=== PATIENT | female | born 2000 ===

== ENCOUNTER → 2019-02-10 | Outpatient (CLI) | payer OTHER ==
--- NOTE | 2019-02-10 15:12 | Diagnostic Imaging Report ---
INDICATION: anatomic assessment during normal . TECHNIQUE: Multiple real-time grayscale images were obtained over the gravid uterus. COMPARISON: None. FINDINGS: Single viable intrauterine , currently in breech presentation. Posterior-positioned placenta without evidence for previa. Normal amount volume of amniotic fluid, index 12.11 cm. The visualized anatomical structures including the kidneys, bladder, stomach, intracranial structures, as well as four-chamber heart appearing unremarkable. The extremities and spine as well as three-vessel cord and cord insertion site appearing unremarkable. Pelvic structures including gender determination unable to be assessed secondary to positioning. Gestational sac configuration is unremarkable. Biometrical measurements are as follows: Biparietal 4.60 cm, age 20 weeks 0 days. Head circumference 17.78 cm, age 20 weeks 2 days. Abdominal circumference 14.45 cm, age 19 weeks 6 days. Femur length 3.38 cm, age 20 weeks 5 days. Sonographic estimate age: 20 weeks 2 days. Sonographic estimated date of delivery: 06/28/2019. Estimated Weight: 336 gm (+/- 49 gm). LMP percentile: 31%. heart rate: 147 beats per minute. number: 1 of 1. IMPRESSION: 1. Single viable intrauterine , currently in breech presentation. Sonographic estimated age at 20 weeks 2 days for an estimated date of delivery of June 28, 2019. No abnormalities demonstrated at this time. Dictated by: Dictated on workstation # [id number]
== END ==
LOC: RAD 13:07
PROVIDERS: ATTEND Obstetrics & Gynecology
DX: Z34.92 Encounter for supervision of normal pregnancy, unspecified, second trimester (principal); Z3A.20 20 weeks gestation of pregnancy
CPT/HCPCS: 76805

== ENCOUNTER → 2019-04-21 | Outpatient (CLI) | payer OTHER ==
--- NOTE | 2019-04-21 15:26 | Diagnostic Imaging Report ---
INDICATION: Follow-up growth. TECHNIQUE: Multiple real-time grayscale images were obtained over the gravid uterus. COMPARISON: 02/10/2019. FINDINGS: The cervix measures 5 cm in length. The fetus is in cephalic presentation. Placenta is posteriorly located and there are no features of abruption or previa. The amount of amniotic fluid appears visually appropriate and the ALESIA is normal at 9.7 cm. Biometrical measurements are as follows: Biparietal 7.78 cm, age 31 weeks 2 days. Head circumference 28.18 cm, age 31 weeks 0 days. Abdominal circumference 23.78 cm, age 28 weeks 1 days. Femur length 5.48 cm, age 29 weeks 0 days. Sonographic estimate age: 29 weeks 6 days. Sonographic estimated date of delivery: 07/01/2019. Estimated Weight: 1293 gm (+/- 189 gm). LMP percentile: 6%. heart rate: 146 beats per minute. number: 1 of 1. IMPRESSION: 1. Single live intrauterine with an estimated gestational age of 29 weeks and 6 days by today's ultrasound. 2. Estimated weight is at the 6th percentile for gestational age. Dictated by: Dictated on workstation # [id number]
== END ==
LOC: RAD 10:05
PROVIDERS: ATTEND Obstetrics & Gynecology
DX: O26.843 Uterine size-date discrepancy, third trimester (principal); Z3A.29 29 weeks gestation of pregnancy
CPT/HCPCS: 76816

== ENCOUNTER 2019-05-09 13:00 | Outpatient (CLI) | payer SELFPAY ==
[~2019-05-09] VITALS: Ht 163 cm; Wt 66.5 kg
--- NOTE | 2019-05-09 13:10 | NUR ---
JAMIE RAMON presented to unit via ambulatory, accompanied by significant other, with c/o LOWER ABDOMINAL PAIN. JAMIE RAMON weighed, gowned, voided, and to bed. EFHM and TOCO applied, VS taken. JAMIE RAMON oriented to bed controls, call light, TV, heat, and A/C controls.
[2019-05-09 13:20] VITALS: BP 116/57
--- NOTE | 2019-05-09 13:30 | NUR ---
THIS RN AT BEDSIDE. PT CO INTERMITTENT LOWER ABDOMINAL & BACK PAIN FOR LAST 2 DAYS. PT SITTING QUIETLY, FLAT AFFECT, TEXTING ON PHONE, RATES PAIN 9/10. PT STATES SHES HAD ABOUT 5 CUPS OF WATER TO DRINK TODAY. WHEN ASKED, PT STATES THAT SHE HAS HAD BURNING WHILE SEE URINATES, INCREASED URGENCY AND FREQUENCY FOR THE LAST 2 DAYS. N/V SINCE 2 DAYS. TYLENOL DECREASES PAIN ONLY SLIGHTLY. DR PATEL ON UNIT AT 1400, THIS RN DISCUSSES PT REPORT WITH DR PATEL, PRENATALS REVIEWED. DR PATEL DOES NOT WANT SVE DONE, OCCASIONALLY UC, FHT STRIP REVIEWED BY DR PATEL. URINE DIPSTICK RESULTS READ TO DR PATEL. DR PATEL ORDERS CBC & CMP.
[2019-05-09 13:47] VITALS: BP 116/57
[2019-05-09 14:18] LABS: BASOPHILS % (AUTO) 0 % (0-10); EOSINOPHILS # (AUTO) 0.2 10^3/uL (0.0-0.3); EOSINOPHILS % (AUTO) 1 % (0-10); HEMATOCRIT 38 % (35-52); HEMOGLOBIN 12.7 G/DL (11.5-16.0); LYMPHOCYTES # (AUTO) 2.1 X 10^3 (1.0-4.0); LYMPHOCYTES % (AUTO) 16 % (12-44); MEAN CORPUSCULAR HEMOGLOBIN 32 PG (25-34); MEAN CORPUSCULAR HGB CONC 34 G/DL (32-36); MEAN CORPUSCULAR VOLUME 95 FL (80-99); MEAN PLATELET VOLUME 10.1 FL (7.4-10.4); MONOCYTES # (AUTO) 1.1 X 10^3 (0.0-1.0); MONOCYTES % (AUTO) 9 % (0-12); NEUTROPHILS # (AUTO) 9.3 X 10^3 (1.8-7.8); NEUTROPHILS % (AUTO) 74 % (42-75); PLATELET COUNT 171 10^3/uL (130-400); WHITE BLOOD COUNT 12.7 10^3/uL (4.3-11.0)
[2019-05-09 14:38] LABS: BAND NEUTROPHILS 3 %; BASOPHILS % (MANUAL) 0 %; EOSINOPHILS % (MANUAL) 0 %; LYMPHOCYTES % (MANUAL) 18 %; MONOCYTES % (MANUAL) 5 %; NEUTROPHILS % (MANUAL) 74 %; RBC MORPH NORMAL
[2019-05-09 14:39] LABS: ALANINE AMINOTRANSFERASE 23 U/L (0-55); ALBUMIN 3.5 GM/DL (3.2-4.5); ALKALINE PHOSPHATASE 158 U/L (40-136); BILIRUBIN,TOTAL 0.3 MG/DL (0.1-1.0); BUN/CREATININE RATIO 10; CALCIUM 9.3 MG/DL (8.5-10.1); CARBON DIOXIDE 20 MMOL/L (21-32); CHLORIDE 108 MMOL/L (98-107); CREATININE SERUM 0.59 MG/DL (0.60-1.30); GFR ESTIMATED > 60; GLUCOSE 89 MG/DL (70-105); POTASSIUM 3.7 MMOL/L (3.6-5.0); SODIUM 137 MMOL/L (135-145); TOTAL PROTEIN 7.1 GM/DL (6.4-8.2)
--- NOTE | 2019-05-09 14:45 | NUR ---
RN CALLED DR PATEL AT 1445, WITH LAB RESULTS, WNL. NO NEW ORDERS RECEIVED.
[2019-05-09] MEDS ORDERED: NITR-65 PO (15:31)
--- NOTE | 2019-05-09 15:42 | NUR ---
RN CALLED DR PATEL BACK AT THIS TIME. ORDER TO DISCHARGE PT TO HOME. RX FOR MACROBID CALLED INTO PT PREFERRED PHARMACY. DC INSTRUCTIONS GIVEN AND EXPLAINED TO PT AND SO. QUESTIONS ANSWERED.
--- NOTE | 2019-05-10 08:27 | Physician Query-Final Dx ---
Clinic Account Progress/Dx Physician Query: Please give diagnosis Please include # weeks gestation Date of Service May 09, 2019 at 13:00 KEEGAN PADILLA May 10, 2019 08:27
== END 2019-05-09 15:45 | disposition home or self-care (01) ==
LOC: WSo 13:00 → LDRP 13:00 → MERGE 13:00 → WSo 15:45
PROVIDERS: ATTEND Obstetrics & Gynecology
DX: O62.4 Hypertonic, incoordinate, and prolonged uterine contractions (principal)
CPT/HCPCS: 36415; 80053; 85007; 85027; 99214

== ENCOUNTER → 2019-06-05 | Outpatient (CLI) | payer OTHER ==
[~2019-06-05] MED LIST: NITR-65 PO
--- NOTE | 2019-06-05 13:06 | Diagnostic Imaging Report ---
INDICATION: Evaluate growth, position, and amniotic fluid volume. TECHNIQUE: Multiple Real-time grayscale images were obtained over the gravid uterus. COMPARISON: 04/21/2019. FINDINGS: There is a single live fetus in a cephalic presentation. The heart rate was recorded at 130 BPM. The placenta is to the left. The amniotic fluid index is lower limits at 7.9 cm. The cervical length is approximately 3.0 cm. Biometrical measurements are as follows: Biparietal 9.09 cm, age 37 weeks 2 days. Head circumference 32.81 cm, age 37 weeks 2 days. Abdominal circumference 29.66 cm, age 33 weeks 5 days. Femur length 6.71 cm, age 34 weeks 4 days. Sonographic estimate age: 35 weeks 5 days. Sonographic estimated date of delivery: 07/05/19. Estimated Weight: 2463 gm (+/- 360 gm). LMP percentile: 8%. heart rate: 130 beats per minute. number: 1 of 1. IMPRESSION: Single live IUP of approximately 35-36 weeks gestational age showing normal interval growth when compared with the exam from 04/21/2019. The amniotic fluid volume is lower limits of normal with an ALESIA of 7.9 cm. Dictated by: Dictated on workstation # [id number]
== END ==
LOC: RAD 10:39
PROVIDERS: ATTEND Obstetrics & Gynecology
DX: O26.843 Uterine size-date discrepancy, third trimester (principal); Z3A.35 35 weeks gestation of pregnancy
CPT/HCPCS: 76805; 76816

== ENCOUNTER 2019-06-14 13:50 | Inpatient (IN) | payer OTHER ==
[~2019-06-14] VITALS: Ht 161 cm; Wt 69.3 kg
[2019-06-14] VITALS (14 sets, daily range): BP systolic 105–126; BP diastolic 56–85
--- NOTE | 2019-06-14 13:50 | NUR ---
JAMIE SAL presented to unit via ambulatory from outpt registration, accompanied by , with c/o ruptured membranes in office. JAMIE SAL weighed, gowned, voided, and to bed. EFHM and TOCO applied, VS taken. JAMIE SAL oriented to bed controls, call light, TV, heat, and A/C controls.
[2019-06-14] MEDS ORDERED: TERBUTALINE INJ 1 MG/ML (BRETHINE) AMP SC PRN (14:15)
--- OUTSIDE RECORDS SUMMARY | 2019-06-14 14:25 | XMS REPORT | Continuity of Care Document ---
Author Organization Unknown Address Unknown Phone Unavailable Allergies Active Description Code Type Severity Reaction Onset Reported/Identified Relationship to Patient Clinical Status Yes No Known Drug Allergies [id number] Drug Allergy Unknown N/A 05/09/2019 Medications There is no data. Problems Date Dx Coded Attending Type Code Diagnosis Diagnosed By 02/14/2019 LLUVIA PATEL DO Ot Z34.9 2 ENCNTR FOR SUPRVSN OF NORMAL PREG, UNSP, 02/14/2019 JORGE DO LLUVIA C Ot Z3A.2 0 20 WEEKS GESTATION OF 02/16/2019 PATEL DO LLUVIA C Ot Z34.9 2 ENCNTR FOR SUPRVSN OF NORMAL PREG, UNSP, 02/16/2019 PATEL DO LLUVIA C Ot Z3A.2 0 20 WEEKS GESTATION OF 04/21/2019 JORGE BUCHANAN LLUVIA C Ot Z34.9 2 ENCNTR FOR SUPRVSN OF NORMAL PREG, UNSP, 04/21/2019 JORGE DO LLUVIA C Ot Z3A.2 0 20 WEEKS GESTATION OF 04/24/2019 JORGE DO LLUVIA C Ot O26.8 43 UTERINE SIZE-DATE DISCREPANCY, THIRD TRI 04/24/2019 PATEL DO LLUVIA C Ot Z3A.2 9 29 WEEKS GESTATION OF 06/06/2019 PATEL DO LLUVIA C Ot O26.8 43 UTERINE SIZE-DATE DISCREPANCY, THIRD TRI 06/06/2019 PATEL DO LLUVIA C Ot Z3A.3 5 35 WEEKS GESTATION OF Procedures There is no data. Results There is no data. Encounters ACCT No. Visit Date/Time Discharge Status Pt. Type Provider Facility Loc./Unit Complaint [id number] 06/05/2019 10:39:00 020 23:59:59 CLS Outpatient JORGE BUCHANAN LLUVIA C [facility] RAD FUNDAL HEIGHT LOW FOR D ATES IN THIRD TRIMESTER,34 [id number] 04/21/2019 10:05:00 020 23:59:59 CLS Outpatient LLUVIA PATEL DO [facility] RAD SIZE [id number] 02/10/2019 13:07:00 019 23:59:59 CLS Outpatient LLUVIA PATEL DO [facility] RAD FETUS PRESENT DURING MN EGNANCY IN 2ND TRI [id number] 05/10/2019 08:32:00 Document Registration
[2019-06-14] MEDS ORDERED: MISOPROSTOL 100 MCG (CYTOTEC) TAB ONE (14:50)
[2019-06-14] MEDS: D5 LR IV SOLUTION 1,000 ML IV SCH ×2 (15:57→22:10)
[2019-06-14 16:01] LABS: BASOPHILS % (AUTO) 0 % (0-10); EOSINOPHILS # (AUTO) 0.2 10^3/uL (0.0-0.3); EOSINOPHILS % (AUTO) 2 % (0-10); HEMATOCRIT 40 % (35-52); HEMOGLOBIN 13.5 G/DL (11.5-16.0); LYMPHOCYTES # (AUTO) 2.2 X 10^3 (1.0-4.0); LYMPHOCYTES % (AUTO) 20 % (12-44); MEAN CORPUSCULAR HEMOGLOBIN 31 PG (25-34); MEAN CORPUSCULAR HGB CONC 34 G/DL (32-36); MEAN CORPUSCULAR VOLUME 93 FL (80-99); MEAN PLATELET VOLUME 10.5 FL (7.4-10.4); MONOCYTES # (AUTO) 0.9 X 10^3 (0.0-1.0); MONOCYTES % (AUTO) 8 % (0-12); NEUTROPHILS # (AUTO) 7.7 X 10^3 (1.8-7.8); NEUTROPHILS % (AUTO) 70 % (42-75); PLATELET COUNT 174 10^3/uL (130-400); RED CELL DISTRIBUTION WIDTH 12.9 % (10.0-14.5); WHITE BLOOD COUNT 10.9 10^3/uL (4.3-11.0)
[2019-06-14] MEDS ORDERED: fentaNYL 2 mcg/ml BUPIVA 0.125 100 ML ONE (16:28)
[2019-06-14] MEDS: LACTATED RINGERS 1,000 ML IV SCH ×2 (16:42→20:05)
--- NOTE | 2019-06-14 16:45 | NUR ---
Dr Rutledge called to inquire - informed her that pt rated pain an 8 was wanting and epidural. LR bolus infusing. Plan to re-check pt after epidural and call physician with exam.
[2019-06-14] MEDS ORDERED: PREN1TAB19 PO (17:20)
--- NOTE | 2019-06-14 17:45 | NUR ---
Dr Rutledge notified of vag exam of one and pt now desires to wait for epidural. Physician will allow regular diet for dinner then clear liquids.
[2019-06-14] MEDS: MISOPROSTOL 100 MCG (CYTOTEC) TAB PO SCH ×2 (19:25→23:26)
--- NOTE | 2019-06-14 19:25 | NUR ---
To pt room. at bedside. Pt appears to be comfortable. Cytotec 50mcg given PO. Pt and have no needs at this time.
--- NOTE | 2019-06-14 19:37 | NUR ---
Report received on pt.
--- NOTE | 2019-06-14 19:56 | NUR ---
Richie called for epidural.
[2019-06-14] MEDS ORDERED: BUPIVACAINE 0.25% 30 ML (SENSORCAINE) VIAL ONE (20:26)
[2019-06-14] MEDS ORDERED: LIDOCAINE PF 2% 5 ML (XYLOCAINE) VIAL ONE (20:26)
[2019-06-14] MEDS ORDERED: fentaNYL INJECTION 100 MCG/2 ML AMP ONE (20:27)
[2019-06-14] MEDS ORDERED: LACTATED RINGERS 1,000 ML IV SCH (21:03)
[2019-06-14] MEDS ORDERED: NALOXONE 0.4 MG/ML 1 ML (NARCAN) VIAL IV PRN (21:15)
[2019-06-14] MEDS ORDERED: diphenhydrAMINE 50 MG/ML INJ (BENADRYL) IV PRN (21:15)
[2019-06-14] MEDS ORDERED: EPIDURAL (fentaNYL 2 MCG/ML BUPIVA 0.125%)100 ML BAG EPI PRN (21:15)
[2019-06-14] MEDS ORDERED: ONDANSETRON 4 MG/2 ML (SDV) Z0FRAN IV PRN (21:15)
[2019-06-14] MEDS ORDERED: CATHETER FLUSH 10 ML SYR IV SCH (22:00)
[2019-06-15] VITALS (30 sets, daily range): BP systolic 90–128; BP diastolic 51–79
--- NOTE | 2019-06-15 04:00 | NUR ---
Dr Rutledge notified of FHT and VE. Ordered to monitor pt and not give next dose of cytotec.
[2019-06-15] MEDS: D5 LR IV SOLUTION 1,000 ML IV SCH (05:30)
--- NOTE | 2019-06-15 05:48 | NUR ---
Dr Rutledge called and given update. Informed about FHT's variability and decels. Mother's HR 120's-140's. VE 3cm, no s/s of distress. Pt denies any chest pain, no racing heart, No pain, no anxiety. Orders received.
[2019-06-15 06:46] LABS: BASOPHILS % (AUTO) 0 % (0-10); EOSINOPHILS # (AUTO) 0.1 10^3/uL (0.0-0.3); EOSINOPHILS % (AUTO) 0 % (0-10); HEMATOCRIT 44 % (35-52); HEMOGLOBIN 14.7 G/DL (11.5-16.0); LYMPHOCYTES # (AUTO) 1.9 X 10^3 (1.0-4.0); LYMPHOCYTES % (AUTO) 10 % (12-44); MEAN CORPUSCULAR HEMOGLOBIN 32 PG (25-34); MEAN CORPUSCULAR HGB CONC 34 G/DL (32-36); MEAN CORPUSCULAR VOLUME 95 FL (80-99); MEAN PLATELET VOLUME 10.9 FL (7.4-10.4); MONOCYTES # (AUTO) 1.7 X 10^3 (0.0-1.0); MONOCYTES % (AUTO) 8 % (0-12); NEUTROPHILS # (AUTO) 16.2 X 10^3 (1.8-7.8); NEUTROPHILS % (AUTO) 82 % (42-75); PLATELET COUNT 138 10^3/uL (130-400); RED CELL DISTRIBUTION WIDTH 13.1 % (10.0-14.5); WHITE BLOOD COUNT 19.8 10^3/uL (4.3-11.0)
[2019-06-15 06:56] LABS: BAND NEUTROPHILS 2 %; BASOPHILS % (MANUAL) 0 %; EOSINOPHILS % (MANUAL) 0 %; LYMPHOCYTES % (MANUAL) 8 %; METAMYELOCYTES % 1 %; MONOCYTES % (MANUAL) 7 %; NEUTROPHILS % (MANUAL) 81 %; REACTIVE LYMPHOCYTES 1 %; TOXIC GRANULATION/VACUOLAZATIO 1+
[2019-06-15 07:08] LABS: ALANINE AMINOTRANSFERASE 20 U/L (0-55); ALBUMIN 3.7 GM/DL (3.2-4.5); ALKALINE PHOSPHATASE 247 U/L (40-136); BILIRUBIN,TOTAL 0.6 MG/DL (0.1-1.0); BUN/CREATININE RATIO 6; CALCIUM 9.9 MG/DL (8.5-10.1); CARBON DIOXIDE 18 MMOL/L (21-32); CHLORIDE 107 MMOL/L (98-107); CREATININE SERUM 0.65 MG/DL (0.60-1.30); GFR ESTIMATED > 60; GLUCOSE 82 MG/DL (70-105); SODIUM 138 MMOL/L (135-145); TOTAL PROTEIN 7.7 GM/DL (6.4-8.2)
[2019-06-15] MEDS ORDERED: ACETAMINOPHEN 650 MG SUPP (TYLENOL) PR NR (08:00)
--- NOTE | 2019-06-15 08:48 | Progress Note ---
Subjective Date Seen by a Provider: Jun 15, 2019 Time Seen by a Provider: 08:30 Objective Exam Vital Signs Date Time Temp Pulse Resp B/P (MAP) Pulse Ox O2 Delivery O2 Flow Rate FiO2 06/15/19 06:45 37.3 137 18 124/78 (93) 100 06/15/19 06:00 36.9 131 18 128/59 (82) 100 06/15/19 05:00 119 18 119/76 (90) 100 06/15/19 04:04 92 20 122/79 (93) 100 06/15/19 04:00 119 18 119/76 (90) 100 06/15/19 03:00 100 18 114/69 (84) 100 06/15/19 02:00 75 20 115/70 (85) 100 06/15/19 01:00 71 18 101/63 (76) 100 06/15/19 00:00 36.2 83 20 114/63 (80) 100 06/14/19 23:00 90 105/67 (80) 98.00 06/14/19 22:00 104 118/56 (76) 06/14/19 21:00 36.6 90 119/70 (86) 06/14/19 20:00 96 126/80 (95) 06/14/19 18:40 103 125/61 (82) Room Air 06/14/19 17:30 96 107/57 (74) Room Air 06/14/19 17:00 115/83 (94) Room Air 06/14/19 16:30 91 123/85 (98) Room Air 06/14/19 16:20 97 116/78 (91) 06/14/19 16:00 37.4 92 118/83 (95) 06/14/19 15:43 92 111/71 (84) 98 Room Air 06/14/19 15:20 93 18 116/78 (91) Room Air 06/14/19 14:50 77 115/77 (90) 06/14/19 14:00 36.8 90 16 97 Room Air 06/14/19 14:00 36.8 99 18 122/83 (96) 97 Room Air I & O 06/15/19 07:00 Intake Total 1000 ml Balance 1000 ml Capillary Refill : Less Than 3 Seconds Results Lab Laboratory Tests 06/14/19 15:25: White Blood Count 10.9, Red Blood Count 4.30L, Hemoglobin 13.5, Hematocrit 40, Mean Corpuscular Volume 93, Mean Corpuscular Hemoglobin 31, Mean Corpuscular Hemoglobin Concent 34, Red Cell Distribution Width 12.9, Platelet Count 174, Mean Platelet Volume 10.5H, Neutrophils (%) (Auto) 70, Lymphocytes (%) (Auto) 20, Monocytes (%) (Auto) 8, Eosinophils (%) (Auto) 2, Basophils (%) (Auto) 0, Neutrophils # (Auto) 7.7, Lymphocytes # (Auto) 2.2, Monocytes # (Auto) 0.9, Eosinophils # (Auto) 0.2, Basophils # (Auto) 0.0 06/15/19 06:40: White Blood Count 19.8H, Red Blood Count 4.60, Hemoglobin 14.7, Hematocrit 44, Mean Corpuscular Volume 95, Mean Corpuscular Hemoglobin 32, Mean Corpuscular Hemoglobin Concent 34, Red Cell Distribution Width 13.1, Platelet Count 138, Mean Platelet Volume 10.9H, Neutrophils (%) (Auto) 82H, Lymphocytes (%) (Auto) 10L, Monocytes (%) (Auto) 8, Eosinophils (%) (Auto) 0, Basophils (%) (Auto) 0, Neutrophils # (Auto) 16.2H, Lymphocytes # (Auto) 1.9, Monocytes # (Auto) 1.7H, Eosinophils # (Auto) 0.1, Basophils # (Auto) 0.0, Neutrophils % (Manual) 81, Lymphocytes % (Manual) 8, Monocytes % (Manual) 7, Eosinophils % (Manual) 0, Basophils % (Manual) 0, Metamyelocytes % 1, Band Neutrophils 2, Reactive Lymphocytes 1, Toxic Granulation 1+, Sodium Level 138, Potassium Level 4.0, Chloride Level 107, Carbon Dioxide Level 18L, Anion Gap 13, Blood Urea Nitrogen 4L, Creatinine 0.65, Estimat Glomerular Filtration Rate > 60, BUN/Creatinine Ratio 6, Glucose Level 82, Calcium Level 9.9, Corrected Calcium 10.1, Total Bilirubin 0.6, Aspartate Amino Transf (AST/SGOT) 27, Alanine Aminotransferase (ALT/SGPT) 20, Alkaline Phosphatase 247H, Total Protein 7.7, Albumin 3.7 Clinical Quality Measures DVT/VTE Risk/Contraindication: Risk Factor Score Per Nursin RFS Level Per Nursing on Admit: 1=Low/No VTE PPX LLUVIA PATEL DO Jun 15, 2019 08:48
[2019-06-15] MEDS: OXYTOCIN PRE-MIX DRIP 500 ML IV SCH ×3 (08:50→11:43)
[2019-06-15] MEDS ORDERED: OXYTOCIN PRE-MIX DRIP 500 ML IV ONE (09:06)
[2019-06-15] MEDS ORDERED: LIDOCAINE/EPI 2% 1:200,00 (XYLOCAINE) 10 ML VIAL ONE (09:11)
[2019-06-15] MEDS ORDERED: AMPICILLIN/SULBACTAM INJECTION 3 GM in NS (IVPB) 100 ML IV NR (09:15)
[2019-06-15] MEDS: AMPICILLIN/SULBACTAM INJECTION 3 GM in NS (IVPB) 100 ML IV SCH ×2 (09:35→17:52)
[2019-06-15] MEDS: MINERAL OIL CONCENTRATE 99.9% 15 ML UDC TOP PRN ×2 (09:55→09:58)
[2019-06-15] MEDS ORDERED: MEASLES,MUMPS,RUBELLA 1 EA INJ SQ ONE (10:30)
[2019-06-15] MEDS ORDERED: TETANUS,DIPTH,PERTUSS P/F (BOOSTRIX) 0.5 ML VIAL IM ONE (10:30)
[2019-06-15] MEDS ORDERED: WITCH HAZEL(TUCKS) 40 EA JAR TOP PRN (10:30)
[2019-06-15] MEDS ORDERED: BENZOCAINE/MENTHOL (DERMOPLAST) 60 ML CAN TP PRN (10:30)
--- NOTE | 2019-06-15 10:32 | OB Labor & Delivery Record ---
Vag Delivery Note Vag Delivery Note Date of Delivery: 06/15/19 Preoperative Diagnosis: Latia Martin is a 18 /Para 1/0 , Gestational Age 38 1/7 WEEKS, FEVER AND TACHYCARDIA IN LABOR Postoperative Diagnosis: Same, FLU NEGATIVE; Surgeon: LLUVIA PATEL Anesthesia: EPIDURAL Delivery Type: VAGINAL Findings: Viable FEMALE , apgars 9/9, weight 2700 GRAMS, TEMP - 101 AT DELIVERY, FOUL SMELLING FLUID Lacerations: 1ST DEGREE Intact placenta with 3 vessel cord. Nuchal cord, DELIVERED THROUGH, body cord or shoulder dystocia Estimated Blood Loss: 200 ml Complications: None Condition: Stable Description of Procedure: The patient is a 18 year old female who presented WITH VAGINAL BLEEDING AND RUPTURE OF MEMBRANES IN OFFICE. She was not in labor (premature ROM at 38 weeks, GBS -). She was admitted and informed consent was obtained. Her labor course was remarkable for augmentation, fever noted to 103 just prior to delivery. RN noted a few hours prior that her cervix was unchanged. She had one dose of misoprostol orally due to premature rupture of membranes (cervix was unfavorable in the clinic)Second dose was held due to frequent contractions and no accelerations. She was started on Oxytocin but had variable decelerations with only 2 mu of pitocin. Approximately 545 am I was notified that the patient had suddenly developed tachycardia. She had baseline heartrate about 100-110 and suddenly this accelerated to 130. just prior to this she had been redosed on her epidural. She also was afebrile. a lab workup was initiated. This also included swabs for influenza and Gallegos virus. She was thus treated as a PUI during the rest of labor and delivery. Approximately 0645, her temp recorded as 37. Then at 0730 I was notified temperature was 38.6. She was given 650 mg acetaminophen OR and started on Unasyn. During the initiation of antibiotics treatment I checked her and she was noted to be completely dilated with 2+ station. She progressed to complete dilatation and began to push. She was then set up for delivery. The infant's head was delivered atraumatically in the OA position. The shoulders and remainder of the 's body were then delivered without difficulty. Upon delivery, the head was held below the level of the perineum and the mouth and nares were bulb suctioned. The cord was doubly clamped and cut and the infant was handed off to the pediatric staff. An intact placenta with 3-vessel cord delivered via Radha and there was found to be minimal bleeding.~ Vigorous fundal massage was performed and the fundus was found to be firm. IV oxytocin was given. Examination of the vagina and perineum revealed a 1ST DEGREE laceration repaired in the usual fashion with 3-0 vicryl suture. Following the repair, sponge, instrument and needle counts were correct. Mom and baby were both in stable condition in the labor suite. Vitals - Labs Vital Signs - I&O Vital Signs Date Time Temp Pulse Resp B/P (MAP) Pulse Ox O2 Delivery O2 Flow Rate FiO2 06/15/19 06:45 37.3 137 18 124/78 (93) 100 06/15/19 06:00 36.9 131 18 128/59 (82) 100 06/15/19 05:00 119 18 119/76 (90) 100 06/15/19 04:04 92 20 122/79 (93) 100 06/15/19 04:00 119 18 119/76 (90) 100 06/15/19 03:00 100 18 114/69 (84) 100 06/15/19 02:00 75 20 115/70 (85) 100 06/15/19 01:00 71 18 101/63 (76) 100 06/15/19 00:00 36.2 83 20 114/63 (80) 100 06/14/19 23:00 90 105/67 (80) 98.00 06/14/19 22:00 104 118/56 (76) 06/14/19 21:00 36.6 90 119/70 (86) 06/14/19 20:00 96 126/80 (95) 06/14/19 18:40 103 125/61 (82) Room Air 06/14/19 17:30 96 107/57 (74) Room Air 06/14/19 17:00 115/83 (94) Room Air 06/14/19 16:30 91 123/85 (98) Room Air 06/14/19 16:20 97 116/78 (91) 06/14/19 16:00 37.4 92 118/83 (95) 06/14/19 15:43 92 111/71 (84) 98 Room Air 06/14/19 15:20 93 18 116/78 (91) Room Air 06/14/19 14:50 77 115/77 (90) 06/14/19 14:00 36.8 90 16 97 Room Air 06/14/19 14:00 36.8 99 18 122/83 (96) 97 Room Air I & O 06/15/19 07:00 Intake Total 1000 ml Balance 1000 ml Labs Laboratory Tests 06/14/19 15:25: White Blood Count 10.9, Red Blood Count 4.30L, Hemoglobin 13.5, Hematocrit 40, Mean Corpuscular Volume 93, Mean Corpuscular Hemoglobin 31, Mean Corpuscular Hemoglobin Concent 34, Red Cell Distribution Width 12.9, Platelet Count 174, Mean Platelet Volume 10.5H, Neutrophils (%) (Auto) 70, Lymphocytes (%) (Auto) 20, Monocytes (%) (Auto) 8, Eosinophils (%) (Auto) 2, Basophils (%) (Auto) 0, Neutrophils # (Auto) 7.7, Lymphocytes # (Auto) 2.2, Monocytes # (Auto) 0.9, Eosinophils # (Auto) 0.2, Basophils # (Auto) 0.0 06/15/19 06:40: White Blood Count 19.8H, Red Blood Count 4.60, Hemoglobin 14.7, Hematocrit 44, Mean Corpuscular Volume 95, Mean Corpuscular Hemoglobin 32, Mean Corpuscular Hemoglobin Concent 34, Red Cell Distribution Width 13.1, Platelet Count 138, Mean Platelet Volume 10.9H, Neutrophils (%) (Auto) 82H, Lymphocytes (%) (Auto) 10L, Monocytes (%) (Auto) 8, Eosinophils (%) (Auto) 0, Basophils (%) (Auto) 0, Neutrophils # (Auto) 16.2H, Lymphocytes # (Auto) 1.9, Monocytes # (Auto) 1.7H, Eosinophils # (Auto) 0.1, Basophils # (Auto) 0.0, Neutrophils % (Manual) 81, Lymphocytes % (Manual) 8, Monocytes % (Manual) 7, Eosinophils % (Manual) 0, Basophils % (Manual) 0, Metamyelocytes % 1, Band Neutrophils 2, Reactive Lymphocytes 1, Toxic Granulation 1+, Sodium Level 138, Potassium Level 4.0, Ch loride Level 107, Carbon Dioxide Level 18L, Anion Gap 13, Blood Urea Nitrogen 4L , Creatinine 0.65, Estimat Glomerular Filtration Rate > 60, BUN/Creatinine Ratio 6, Glucose Level 82, Calcium Level 9.9, Corrected Calcium 10.1, Total Bilirubin 0.6, Aspartate Amino Transf (AST/SGOT) 27, Alanine Aminotransferase (ALT/SGPT) 20, Alkaline Phosphatase 247H, Total Protein 7.7, Albumin 3.7 06/15/19 08:23: Microbiology 06/15/19 Influenza Types A,B Antigen (VIOLETTA) - Final, Complete LLUVIA PATEL DO Jun 15, 2019 10:32
[2019-06-15] MEDS: metroNIDAZOLE 500MG/100ML IVPB 100 ML IV SCH ×2 (11:27→20:46)
[2019-06-15] MEDS: IBUPROFEN 600 MG (MOTRIN) TAB PO SCH ×3 (11:28→23:56)
[2019-06-15] MEDS ORDERED: CATHETER FLUSH 10 ML SYR IV SCH (14:00)
--- NOTE | 2019-06-15 14:00 | NUR ---
Up to BR with assistance. Voided large amt. Maribeth care done. 1600 Transferred to room 303.
[2019-06-15] MEDS: ACETAMINOPHEN 500 MG TAB (TYLENOL) PO SCH ×2 (15:58→23:56)
--- NOTE | 2019-06-15 16:30 | NUR ---
Negative COVID test received.
[2019-06-15] MEDS: DOCUSATE SODIUM 100 MG (COLACE) CAP PO SCH (20:46)
[2019-06-16 05:40] VITALS: BP 104/67
[2019-06-16] MEDS: IBUPROFEN 600 MG (MOTRIN) TAB PO SCH ×3 (05:41→21:59)
[2019-06-16 06:14] LABS: BASOPHILS % (AUTO) 0 % (0-10); EOSINOPHILS # (AUTO) 0.2 10^3/uL (0.0-0.3); EOSINOPHILS % (AUTO) 1 % (0-10); HEMATOCRIT 36 % (35-52); HEMOGLOBIN 11.8 G/DL (11.5-16.0); LYMPHOCYTES # (AUTO) 2.4 X 10^3 (1.0-4.0); LYMPHOCYTES % (AUTO) 10 % (12-44); MEAN CORPUSCULAR HEMOGLOBIN 31 PG (25-34); MEAN CORPUSCULAR HGB CONC 33 G/DL (32-36); MEAN CORPUSCULAR VOLUME 95 FL (80-99); MEAN PLATELET VOLUME 10.2 FL (7.4-10.4); MONOCYTES # (AUTO) 1.5 X 10^3 (0.0-1.0); MONOCYTES % (AUTO) 6 % (0-12); NEUTROPHILS # (AUTO) 19.9 X 10^3 (1.8-7.8); NEUTROPHILS % (AUTO) 83 % (42-75); PLATELET COUNT 142 10^3/uL (130-400); RED CELL DISTRIBUTION WIDTH 13.5 % (10.0-14.5)
[2019-06-16 09:30] VITALS: BP 109/56
--- NOTE | 2019-06-16 10:45 | Anesthesia-Regional Post-Op ---
Regional Patient Condition Mental Status: Alert, Oriented x3 Circulation: Same as Pre-Op Headache: Absent Sensation: Full Recovery Motor Block: Absent Post Op Complications Complications None Follow Up Care/Instructions Patient Instructions None needed. Anesthesia/Patient Condition Patient is doing well, no complaints, stable vital signs, no apparent adverse anesthesia problems. No complications reported per nursing. NOEMÍ GUZMAN CRNA Jun 16, 2019 10:45
[2019-06-16] MEDS: PRENATAL VITAMIN 1 EA TAB PO SCH (10:50)
[2019-06-16] MEDS: DOCUSATE SODIUM 100 MG (COLACE) CAP PO SCH ×2 (10:50→20:19)
[2019-06-16] MEDS: FERROUS SULF 325 MG (IRON) TAB PO SCH (10:50)
[2019-06-16] MEDS: ACETAMINOPHEN 500 MG TAB (TYLENOL) PO SCH ×2 (10:50→20:19)
--- NOTE | 2019-06-16 11:35 | Postpartum Progress Note ---
Note Note Day # 1 s/p whitaker virus, flu a/b - Chorio - received unasyn and flagyl Lactic acid was initially elevated bc it didn't get sent down as scheduled (sat too long). Repeat was negative Has been afebrile since a few hours after delivery. Subjective: Patient is without complaints. Ambulating, voiding. Tolerating a regular diet without nausea or vomiting. Normal lochia. Pain is well controlled with oral pain medications. [] feeding. Objective: Microbiology 06/15/19 Influenza Types A,B Antigen (VIOLETTA) - Final, Complete 06/14/19 Urine Culture - Final, Complete 3 or more isolates VS - Last 72 Hours, by Label 06/14/19 06/14/19 06/14/19 06/14/19 14:00 14:00 14:50 15:20 Temp 36.8 36.8 Pulse 99 90 77 93 Resp 18 16 18 B/P (MAP) 122/83 (96) 115/77 (90) 116/78 (91) Pulse Ox 97 97 O2 Delivery Room Air Room Air Room Air 06/14/19 06/14/19 06/14/19 06/14/19 15:43 16:00 16:20 16:30 Temp 37.4 Pulse 92 92 97 91 B/P (MAP) 111/71 (84) 118/83 (95) 116/78 (91) 123/85 (98) Pulse Ox 98 O2 Delivery Room Air Room Air 06/14/19 06/14/19 06/14/19 06/14/19 17:00 17:30 18:40 20:00 Pulse 96 103 96 B/P (MAP) 115/83 (94) 107/57 (74) 125/61 (82) 126/80 (95) O2 Delivery Room Air Room Air Room Air 06/14/19 06/14/19 06/14/19 06/15/19 21:00 22:00 23:00 00:00 Temp 36.6 36.2 Pulse 90 104 90 83 Resp 20 B/P (MAP) 119/70 (86) 118/56 (76) 105/67 (80) 114/63 (80) Pulse Ox 100 O2 Flow Rate 98.00 06/15/19 06/15/19 06/15/19 06/15/19 01:00 02:00 03:00 04:00 Pulse 71 75 100 119 Resp 18 20 18 18 B/P (MAP) 101/63 (76) 115/70 (85) 114/69 (84) 119/76 (90) Pulse Ox 100 100 100 100 06/15/19 06/15/19 06/15/19 06/15/19 04:04 05:00 06:00 06:45 Temp 36.9 37.3 Pulse 92 119 131 137 Resp 20 18 18 18 B/P (MAP) 122/79 (93) 119/76 (90) 128/59 (82) 124/78 (93) Pulse Ox 100 100 100 100 06/15/19 06/15/19 06/15/19 06/15/19 07:15 07:30 07:45 08:00 Temp 39.6 Pulse 139 140 136 134 Resp 18 18 B/P (MAP) 121/79 (93) 112/71 (85) 121/75 (90) Pulse Ox 100 100 100 100 06/15/19 06/15/19 06/15/19 06/15/19 08:15 08:30 08:45 08:53 Temp 39.8 39.8 Pulse 141 142 153 B/P (MAP) 116/66 (83) Pulse Ox 100 100 100 06/15/19 06/15/19 06/15/19 06/15/19 09:00 09:15 09:30 09:45 Temp 38.1 Pulse 136 136 129 122 Resp 16 B/P (MAP) 121/61 (81) 116/57 (76) 108/51 (70) 06/15/19 06/15/19 06/15/19 06/15/19 10:15 10:30 10:45 11:00 Pulse 125 122 118 115 Resp 16 B/P (MAP) 106/52 (70) 107/57 (74) 97/53 (68) 98/52 (67) 06/15/19 06/15/19 06/15/19 06/15/19 11:15 11:28 11:30 11:45 Temp 38.4 Pulse 110 112 121 B/P (MAP) 103/58 (73) 101/52 (68) 90/59 (69) 4/16/20 4/16/20 4/16/20 4/16/20 12:00 12:15 12:30 14:30 Temp 37.4 37.8 Pulse 115 111 114 113 Resp 16 B/P (MAP) 95/59 (71) 94/53 (67) 90/52 (65) 101/53 (69) Pulse Ox 97 O2 Delivery Nasal Cannula 06/15/19 06/15/19 06/15/19 06/15/19 17:51 17:54 20:40 23:55 Temp 36.6 36.6 36.4 36.7 Pulse 105 83 90 Resp 16 18 18 B/P (MAP) 104/65 (78) 105/66 (79) 102/56 (71) Pulse Ox 98 100 99 O2 Delivery Simple Mask 06/16/19 06/16/19 05:40 09:30 Temp 37.2 36.5 Pulse 93 78 Resp 18 18 B/P (MAP) 104/67 (79) 109/56 (73) Pulse Ox 98 99 Laboratory Tests Test 06/15/19 13:18 06/16/19 06:06 Range/Units Lactic Acid Level 1.54 0.50-2.00 MMOL/L White Blood Count 24.0 H 4.3-11.0 10^3/uL Red Blood Count 3.75 L 4.35-5.85 10^6/uL Hemoglobin 11.8 11.5-16.0 G/DL Hematocrit 36 35-52 % Mean Corpuscular Volume 95 80-99 FL Mean Corpuscular Hemoglobin 31 25-34 PG Mean Corpuscular Hemoglobin Concent 33 32-36 G/DL Red Cell Distribution Width 13.5 10.0-14.5 % Platelet Count 142 130-400 10^3/uL Mean Platelet Volume 10.2 7.4-10.4 FL Neutrophils (%) (Auto) 83 H 42-75 % Lymphocytes (%) (Auto) 10 L 12-44 % Monocytes (%) (Auto) 6 0-12 % Eosinophils (%) (Auto) 1 0-10 % Basophils (%) (Auto) 0 0-10 % Neutrophils # (Auto) 19.9 H 1.8-7.8 X 10^3 Lymphocytes # (Auto) 2.4 1.0-4.0 X 10^3 Monocytes # (Auto) 1.5 H 0.0-1.0 X 10^3 Eosinophils # (Auto) 0.2 0.0-0.3 10^3/uL Basophils # (Auto) 0.0 0.0-0.1 10^3/uL Physical Exam: General - Alert and oriented, no apparent distress Abdomen - Soft, appropriately tender to palpation, non-distended, fundus firm at umbilicus Extremities - no edema, negative Conor's bilaterally [] Assessment: [] post- day # [], status post [] vaginal delivery. Recovering well, hemodynamically stable 2. chorioamnionitis/fever in labor Plan: Routine care. Encourage breast feeding. Encourage ambulation. Ferrous sulfate supplementation. Plan for discharge tomorrow Vitals - Labs Vital Signs - I&O Vital Signs Date Time Temp Pulse Resp B/P (MAP) Pulse Ox O2 Delivery O2 Flow Rate FiO2 06/16/19 09:30 36.5 78 18 109/56 (73) 99 06/16/19 05:40 37.2 93 18 104/67 (79) 98 06/15/19 23:55 36.7 90 18 102/56 (71) 99 06/15/19 20:40 36.4 83 18 105/66 (79) 100 06/15/19 17:54 36.6 105 16 104/65 (78) 98 Simple Mask 06/15/19 17:51 36.6 06/15/19 14:30 37.8 113 16 101/53 (69) 97 Nasal Cannula 06/15/19 12:30 37.4 114 90/52 (65) 06/15/19 12:15 111 94/53 (67) 06/15/19 12:00 115 95/59 (71) 06/15/19 11:45 121 90/59 (69) I & O 06/16/19 07:00 Intake Total 4690 ml Output Total 1650 ml Balance 3040 ml Labs Laboratory Tests 06/15/19 13:18: Lactic Acid Level 1.54 06/16/19 06:06: White Blood Count 24.0H, Red Blood Count 3.75L, Hemoglobin 11.8, Hematocrit 36, Mean Corpuscular Volume 95, Mean Corpuscular Hemoglobin 31, Mean Corpuscular Hemoglobin Concent 33, Red Cell Distribution Width 13.5, Platelet Count 142, Mean Platelet Volume 10.2, Neutrophils (%) (Auto) 83H, Lymphocytes (%) (Auto) 10L, Monocytes (%) (Auto) 6, Eosinophils (%) (Auto) 1, Basophils (%) (Auto) 0, Neutrophils # (Auto) 19.9H, Lymphocytes # (Auto) 2.4, Monocytes # (Auto) 1.5H, Eosinophils # (Auto) 0.2, Basophils # (Auto) 0.0 Microbiology 06/15/19 Influenza Types A,B Antigen (VIOLETTA) - Final, Complete 06/14/19 Urine Culture - Final, Complete 3 or more isolates LLUVIA PATEL DO Jun 16, 2019 11:35
[2019-06-16 14:00] VITALS: BP 110/62
[2019-06-16 20:19] VITALS: BP 108/68
[2019-06-17] VITALS (7 sets, daily range): BP systolic 102–127; BP diastolic 51–84
[2019-06-17] MEDS: ACETAMINOPHEN 500 MG TAB (TYLENOL) PO SCH ×3 (04:00→21:40)
[2019-06-17] MEDS: IBUPROFEN 600 MG (MOTRIN) TAB PO SCH ×3 (04:01→16:38)
[2019-06-17 05:02] LABS: BASOPHILS % (AUTO) 0 % (0-10); EOSINOPHILS # (AUTO) 0.3 10^3/uL (0.0-0.3); EOSINOPHILS % (AUTO) 1 % (0-10); HEMATOCRIT 36 % (35-52); HEMOGLOBIN 11.9 G/DL (11.5-16.0); LYMPHOCYTES # (AUTO) 2.9 X 10^3 (1.0-4.0); LYMPHOCYTES % (AUTO) 15 % (12-44); MEAN CORPUSCULAR HEMOGLOBIN 32 PG (25-34); MEAN CORPUSCULAR HGB CONC 33 G/DL (32-36); MEAN CORPUSCULAR VOLUME 95 FL (80-99); MEAN PLATELET VOLUME 10.8 FL (7.4-10.4); MONOCYTES # (AUTO) 1.4 X 10^3 (0.0-1.0); MONOCYTES % (AUTO) 8 % (0-12); NEUTROPHILS # (AUTO) 14.5 X 10^3 (1.8-7.8); NEUTROPHILS % (AUTO) 76 % (42-75); PLATELET COUNT 164 10^3/uL (130-400); RED CELL DISTRIBUTION WIDTH 13.1 % (10.0-14.5); WHITE BLOOD COUNT 19.1 10^3/uL (4.3-11.0)
--- NOTE | 2019-06-17 06:07 | Postpartum Progress Note ---
Note Note Day # 2 s/p Remains afebrile and leukocytosis is improving. Subjective: Patient is without complaints. Ambulating, voiding. Tolerating a regular diet without nausea or vomiting. Normal lochia. Pain is well controlled with oral pa in medications. breast feeding. Objective: 06/16/19 06/17/19 20:19 00:20 Temp 36.6 36.6 Pulse 76 86 Resp 20 19 B/P (MAP) 108/68 (81) 102/70 (81) Pulse Ox 98 98 O2 Delivery Room Air Laboratory Tests Test 06/17/19 04:25 Range/Units White Blood Count 19.1 H 4.3-11.0 10^3/uL Red Blood Count 3.77 L 4.35-5.85 10^6/uL Hemoglobin 11.9 11.5-16.0 G/DL Hematocrit 36 35-52 % Mean Corpuscular Volume 95 80-99 FL Mean Corpuscular Hemoglobin 32 25-34 PG Mean Corpuscular Hemoglobin Concent 33 32-36 G/DL Red Cell Distribution Width 13.1 10.0-14.5 % Platelet Count 164 130-400 10^3/uL Mean Platelet Volume 10.8 H 7.4-10.4 FL Neutrophils (%) (Auto) 76 H 42-75 % Lymphocytes (%) (Auto) 15 12-44 % Monocytes (%) (Auto) 8 0-12 % Eosinophils (%) (Auto) 1 0-10 % Basophils (%) (Auto) 0 0-10 % Neutrophils # (Auto) 14.5 H 1.8-7.8 X 10^3 Lymphocytes # (Auto) 2.9 1.0-4.0 X 10^3 Monocytes # (Auto) 1.4 H 0.0-1.0 X 10^3 Eosinophils # (Auto) 0.3 0.0-0.3 10^3/uL Basophils # (Auto) 0.0 0.0-0.1 10^3/uL Physical Exam: General - Alert and oriented, no apparent distress Abdomen - Soft, appropriately tender to palpation, non-distended, fundus firm at umbilicus Extremities - no edema, negative Conor's bilaterally [] Assessment: 1. post- day # 2, status post vaginal delivery. Recovering well, hemodynamically stable 2. Chorioamnionitis - improving Plan: Routine care. Encourage breast feeding. Encourage ambulation. Ferrous sulfate supplementation. Plan for discharge tomorrow or to parent room Vitals - Labs Vital Signs - I&O Vital Signs Date Time Temp Pulse Resp B/P (MAP) Pulse Ox O2 Delivery O2 Flow Rate FiO2 06/17/19 00:20 36.6 86 19 102/70 (81) 98 Room Air 06/16/19 20:19 36.6 76 20 108/68 (81) 98 06/16/19 14:00 36.8 96 17 110/62 (78) 98 06/16/19 09:30 36.5 78 18 109/56 (73) 99 Labs Laboratory Tests 06/16/19 06:06: White Blood Count 24.0H, Red Blood Count 3.75L, Hemoglobin 11.8, Hematocrit 36, Mean Corpuscular Volume 95, Mean Corpuscular Hemoglobin 31, Mean Corpuscular Hemoglobin Concent 33, Red Cell Distribution Width 13.5, Platelet Count 142, Mean Platelet Volume 10.2, Neutrophils (%) (Auto) 83H, Lymphocytes (%) (Auto) 10L, Monocytes (%) (Auto) 6, Eosinophils (%) (Auto) 1, Basophils (%) (Auto) 0, Neutrophils # (Auto) 19.9H, Lymphocytes # (Auto) 2.4, Monocytes # (Auto) 1.5H, Eosinophils # (Auto) 0.2, Basophils # (Auto) 0.0 06/17/19 04:25: White Blood Count 19.1H, Red Blood Count 3.77L, Hemoglobin 11.9, Hematocrit 36, Mean Corpuscular Volume 95, Mean Corpuscular Hemoglobin 32, Mean Corpuscular Hemoglobin Concent 33, Red Cell Distribution Width 13.1, Platelet Count 164, Mean Platelet Volume 10.8H, Neutrophils (%) (Auto) 76H, Lymphocytes (%) (Auto) 15, Monocytes (%) (Auto) 8, Eosinophils (%) (Auto) 1, Basophils (%) (Auto) 0, Neutrophils # (Auto) 14.5H, Lymphocytes # (Auto) 2.9, Monocytes # (Auto) 1.4H, Eosinophils # (Auto) 0.3, Basophils # (Auto) 0.0 Microbiology 06/15/19 Gram Stain - Final, Resulted 06/15/19 Anaerobic Culture, Resulted Pending 06/15/19 Surgical Culture - Preliminary, Resulted Mixed Bacterial Rohini With 06/15/19 Influenza Types A,B Antigen (VIOLETTA) - Final, Complete 06/14/19 Urine Culture - Final, Complete 3 or more isolates LLUVIA PATEL DO Jun 17, 2019 06:07
[2019-06-17] MEDS: FERROUS SULF 325 MG (IRON) TAB PO SCH (09:15)
[2019-06-17] MEDS: PRENATAL VITAMIN 1 EA TAB PO SCH (09:15)
[2019-06-17] MEDS: DOCUSATE SODIUM 100 MG (COLACE) CAP PO SCH ×2 (09:15→21:40)
--- NOTE | 2019-06-17 09:20 | NUR ---
PT IN BED, JUST FINISHED INFANT. MEDS GIVEN PO; SEE EMAR FOR FURTHER. VS OBTAINED. INITIAL SHIFT ASSESSMENT COMPLETED; SEE INTERVENTION FOR FURTHER. NO NEEDS VOICED, CALL LIGHT WITHIN REACH.
--- NOTE | 2019-06-17 10:13 | NUR ---
PT AT THIS TIME. INFORMED TO CALL WHEN AVAILABLE TO MOVE ROOMS DUE TO COLD TEMPS AND COLD WATER IN CURRENT ROOM. PT VERBALIZES UNDERSTANDING.
--- NOTE | 2019-06-17 13:15 | NUR ---
PT IN BED, HOLDING . VS OBTAINED. TYLENOL GIVEN PO; SEE EMAR FOR FURTHER. FRESH WATER PROVIDED. NO FURTHER NEEDS VOICED.
--- NOTE | 2019-06-17 16:38 | NUR ---
PT SITTING UP ON THE COUCH, HOLDING INFANT. S/O AT PT'S SIDE. VS OBTAINED. ROUTINE MOTRIN GIVEN PO; SEE EMAR FOR FURTHER. NO NEEDS VOICED.
--- NOTE | 2019-06-17 19:15 | NUR ---
REPORT RECEIVED AND CARES RESUMED BY THIS NURSE.
--- NOTE | 2019-06-17 21:40 | NUR ---
INITIAL SHIFT ASSESSMENT DONE. VSS. PT DENIES ANY NEEDS OR C/O'S. AT SIDE.
--- NOTE | 2019-06-17 23:50 | NUR ---
PT RESTING QUIETLY IN BED. NO S/S OF DISTRESS OR DISCOMFORT NOTED.
--- NOTE | 2019-06-18 02:18 | NUR ---
VSS. MOTRIN ADMINISTERED. PT DENIES ANY PAIN OR NEEDS.
[2019-06-18 02:25] VITALS: BP 107/73
[2019-06-18] MEDS: IBUPROFEN 600 MG (MOTRIN) TAB PO SCH ×4 (02:25→12:15)
--- NOTE | 2019-06-18 04:10 | NUR ---
PT CONT TO REST OFF ET ON. AND IN ROOM.
--- NOTE | 2019-06-18 06:20 | NUR ---
SCHEDULED TYLENOL ADMINISTERED. PT DENIES ANY NEEDS OR PAIN.
[2019-06-18] MEDS: ACETAMINOPHEN 500 MG TAB (TYLENOL) PO SCH ×3 (06:21→14:30)
[2019-06-18 08:00] VITALS: BP 114/70
[2019-06-18] MEDS: DOCUSATE SODIUM 100 MG (COLACE) CAP PO SCH (10:46)
[2019-06-18] MEDS: PRENATAL VITAMIN 1 EA TAB PO SCH (10:46)
[2019-06-18] MEDS: FERROUS SULF 325 MG (IRON) TAB PO SCH (10:46)
[2019-06-18 10:59] LABS: BASOPHILS # (AUTO) 0.1 10^3/uL (0.0-0.1); BASOPHILS % (AUTO) 1 % (0-10); EOSINOPHILS # (AUTO) 0.4 10^3/uL (0.0-0.3); EOSINOPHILS % (AUTO) 3 % (0-10); HEMATOCRIT 37 % (35-52); HEMOGLOBIN 12.7 G/DL (11.5-16.0); LYMPHOCYTES # (AUTO) 3.1 X 10^3 (1.0-4.0); LYMPHOCYTES % (AUTO) 25 % (12-44); MEAN CORPUSCULAR HEMOGLOBIN 32 PG (25-34); MEAN CORPUSCULAR HGB CONC 34 G/DL (32-36); MEAN CORPUSCULAR VOLUME 94 FL (80-99); MEAN PLATELET VOLUME 9.9 FL (7.4-10.4); MONOCYTES # (AUTO) 0.8 X 10^3 (0.0-1.0); MONOCYTES % (AUTO) 6 % (0-12); NEUTROPHILS % (AUTO) 65 % (42-75); PLATELET COUNT 193 10^3/uL (130-400); RED CELL DISTRIBUTION WIDTH 12.9 % (10.0-14.5); WHITE BLOOD COUNT 12.3 10^3/uL (4.3-11.0)
--- NOTE | 2019-06-18 12:47 | Postpartum Progress Note ---
Note Note Day # 3 s/p Leukocytosis is improving. Baby will have 3 more days of antibiotics. She will be discharged to parent status/boarding. culture results reviewed. She was treated with Unasyn and Flagyl and this should cover strep and usual vaginal anuj. Requested sens on the micro specimen Baby currently on Amp/Gent Afebrile since pp day 1. WBC trending downward. No left shift Subjective: Patient is without complaints. Ambulating, voiding. Tolerating a regular diet without nausea or vomiting. Normal lochia. Pain is well controlled with oral pain medications. breast feeding. RN states breast feeding seems to be going well. Objective: 06/18/19 06/18/19 02:25 08:00 Temp 36.5 36.8 Pulse 71 82 Resp 16 18 B/P (MAP) 107/73 (84) 114/70 (85) Pulse Ox 99 98 O2 Delivery Room Air Room Air Laboratory Tests Test 06/18/19 10:52 Range/Units White Blood Count 12.3 H 4.3-11.0 10^3/uL Red Blood Count 3.92 L 4.35-5.85 10^6/uL Hemoglobin 12.7 11.5-16.0 G/DL Hematocrit 37 35-52 % Mean Corpuscular Volume 94 80-99 FL Mean Corpuscular Hemoglobin 32 25-34 PG Mean Corpuscular Hemoglobin Concent 34 32-36 G/DL Red Cell Distribution Width 12.9 10.0-14.5 % Platelet Count 193 130-400 10^3/uL Mean Platelet Volume 9.9 7.4-10.4 FL Neutrophils (%) (Auto) 65 42-75 % Lymphocytes (%) (Auto) 25 12-44 % Monocytes (%) (Auto) 6 0-12 % Eosinophils (%) (Auto) 3 0-10 % Basophils (%) (Auto) 1 0-10 % Neutrophils # (Auto) 8.0 H 1.8-7.8 X 10^3 Lymphocytes # (Auto) 3.1 1.0-4.0 X 10^3 Monocytes # (Auto) 0.8 0.0-1.0 X 10^3 Eosinophils # (Auto) 0.4 H 0.0-0.3 10^3/uL Basophils # (Auto) 0.1 0.0-0.1 10^3/uL Physical Exam: General - Alert and oriented, no apparent distress Abdomen - Soft, appropriately tender to palpation, non-distended, fundus firm at umbilicus Extremities - no edema, negative Conor's bilaterally [ Assessment: 1. post- day # 3, status post spontaneous vaginal delivery. Recovering well, hemodynamically stable 2. Leukocytosis/prolonge rupture of membranes/ chorioamnionitis - resolved Plan: Routine care. Encourage breast feeding. Encourage ambulation. Plan for discharge to parent room Vitals - Labs Vital Signs - I&O Vital Signs Date Time Temp Pulse Resp B/P (MAP) Pulse Ox O2 Delivery O2 Flow Rate FiO2 06/18/19 08:00 36.8 82 18 114/70 (85) 98 Room Air 06/18/19 02:25 36.5 71 16 107/73 (84) 99 Room Air 06/17/19 21:40 36.4 72 16 108/72 (84) 98 Room Air 06/17/19 16:35 36.9 87 18 105/51 (69) 97 Room Air 06/17/19 13:12 36.4 73 18 123/72 (89) 97 Room Air Labs Laboratory Tests 06/18/19 10:52: White Blood Count 12.3H, Red Blood Count 3.92L, Hemoglobin 12.7, Hematocrit 37, Mean Corpuscular Volume 94, Mean Corpuscular Hemoglobin 32, Mean Corpuscular Hemoglobin Concent 34, Red Cell Distribution Width 12.9, Platelet Count 193, Mean Platelet Volume 9.9, Neutrophils (%) (Auto) 65, Lymphocytes (%) (Auto) 25, Monocytes (%) (Auto) 6, Eosinophils (%) (Auto) 3, Basophils (%) (Auto) 1, Neutrophils # (Auto) 8.0H, Lymphocytes # (Auto) 3.1, Monocytes # (Auto) 0.8, Eosinophils # (Auto) 0.4H, Basophils # (Auto) 0.1 Microbiology 06/15/19 Gram Stain - Final, Resulted 06/15/19 Anaerobic Culture, Resulted Pending 06/15/19 Surgical Culture - Preliminary, Resulted Mixed Bacterial Anuj With Usual Vaginal Anuj Streptococcus viridans Escherichia coli 06/15/19 Influenza Types A,B Antigen (VIOLETTA) - Final, Complete 06/14/19 Urine Culture - Final, Complete 3 or more isolates LLUVIA PATEL DO Jun 18, 2019 12:47
--- NOTE | 2019-06-18 12:50 | NUR ---
SEDA IN MICRO CALLED BY THIS RN WITH ORDERS FROM DR PATEL TO DO SENSITIVITY ON TISSUE SPECIMEN, SPECIFICALLY, ECOLI.
[2019-06-18] MEDS ORDERED: IBUP-844 PO (12:51)
[2019-06-18] MEDS ORDERED: ACET-93 PO (12:51)
[2019-06-18] MEDS ORDERED: PREN-142 PO (12:51)
--- NOTE | 2019-06-18 12:54 | Short Stay Summary ---
Discharge Summary Hospital Course Was the Problem List Reviewed?: Yes Final Diagnosis: chorioamnionitis; 38 week gestation; vaginal deliv Hospital Course Date of Admission: Jun 14, 2019 at 13:50 Admission Diagnosis : Family Physician/Provider: No,Local Physician Date of Discharge: 06/18/19 Discharge Diagnosis: [ ] Hospital Course: [ ] Labs and Pending Lab Test: Laboratory Tests 06/18/19 10:52: White Blood Count 12.3H, Red Blood Count 3.92L, Hemoglobin 12.7, Hematocrit 37, Mean Corpuscular Volume 94, Mean Corpuscular Hemoglobin 32, Mean Corpuscular Hemoglobin Concent 34, Red Cell Distribution Width 12.9, Platelet Count 193, Mean Platelet Volume 9.9, Neutrophils (%) (Auto) 65, Lymphocytes (%) (Auto) 25, Monocytes (%) (Auto) 6, Eosinophils (%) (Auto) 3, Basophils (%) (Auto) 1, Neutrophils # (Auto) 8.0H, Lymphocytes # (Auto) 3.1, Monocytes # (Auto) 0.8, Eosinophils # (Auto) 0.4H, Basophils # (Auto) 0.1 Microbiology 06/15/19 Gram Stain - Final, Resulted 06/15/19 Anaerobic Culture, Resulted Pending 06/15/19 Surgical Culture - Preliminary, Resulted Mixed Bacterial Rohini With Usual Vaginal Rohini Streptococcus viridans Escherichia coli 06/15/19 Influenza Types A,B Antigen (VIOLETTA) - Final, Complete 06/14/19 Urine Culture - Final, Complete 3 or more isolates Home Meds Active Reported Vitamins Tablet ( Vit/Iron Fumarate/FA) 1 Each Tablet 1 Each PO DAILY Assessment/Pt Instructions Schedule follow up appointment with Dr. Patel/Yasmine for 1 week post (call Wednesday for appointment); this could be a phone call visit, but schedule it and the nurse will call at the time of the appointment. Please leave a number that you can be reached at [address] exam [address] Patel Discharge Instructions Discharge Diet: No Restrictions Activity as Tolerated: Yes Discharge Physical Examination General Appearance: Alert Respiratory: Clear to Auscultation, Normal Air Movement Cardiovascular: Regular Rate Allergies: Coded Allergies: No Known Drug Allergies (Unverified , 05/10/19) Discharge Summary Date of Admission Jun 14, 2019 at 13:50 Date of Discharge 06/18/19 Discharge Date: Jun 18, 2019 Admission Diagnosis Rupture of membranes 38 week gestation Consults/Procedures Procedures Epidural Vaginal delivery Clinical Quality Measures DVT/VTE Risk/Contraindication: Risk Factor Score Per Nursin RFS Level Per Nursing on Admit: 1=Low/No VTE PPX LLUVIA PATEL DO Jun 18, 2019 12:54
--- NOTE | 2019-06-18 14:50 | NUR ---
PT DISCHARGED FROM HOSPITAL CARE. PT CONTINUES TO ROOM IN WITH AT THIS TIME D/T CONT HOSPITALIZATION FOR ATB. PT AND SPOUSE GIVEN PT D/C INSTRUCTIONS. SPOUSE IS ARRANGING TO HAVE MEDICATION, MOTRIN AND TYLENOL PICKED UP AT PHARMACY AND DELIVERED TO THEM. SPOUSE WILL CONTINUE TO STAY W/ MOTHER AND .
== END 2019-06-18 14:45 | disposition home or self-care (01) | DRG 805 ==
LOC: LDRP 13:50 → WS 06-17 10:54
PROVIDERS: ADMIT Obstetrics & Gynecology; ATTEND Obstetrics & Gynecology
PROC: 10E0XZZ Delivery of Products of Conception, External Approach (ICD-10-PCS; principal; 2019-06-15)
PROC: 0HQ9XZZ Repair Perineum Skin, External Approach (ICD-10-PCS; 2019-06-15)
DX: O42.02 Full-term premature rupture of membranes, onset of labor within 24 hours of rupture (principal); O41.1230 Chorioamnionitis, third trimester, not applicable or unspecified; O70.0 First degree perineal laceration during delivery; O69.81X0 Labor and delivery complicated by cord around neck, without compression, not applicable or unspecified; Z3A.38 38 weeks gestation of pregnancy; Z37.0 Single live birth
CPT/HCPCS: 36415; 80053; 83605; 85007; 85025; 85027; 86850; 86900; 86901; 87070; 87075; 87076; 87077; 87088; 87185; 87186; 87205; 87635; 87804; 88307